=== PATIENT | male | born 1945 | race African-American/Black ===

== ENCOUNTER → 2016-08-30 | Outpatient (CLI) | payer OTHER ==
[2014-04-25 11:09] VITALS: BP 140/80
[~2016-08-30] MED LIST: AMLO10TA2 PO; ASPI81TA50 PO; DOCU100C5 PO; HYDR25TA9 PO; INSU100I17 SQ; INSU100I18 SQ; INSU100I27 SQ; LEUP22.52 IM; LEUP30SY IM; LOSA100T6 PO; LOSA25TA4 PO; LOVA20TA2 PO; METF10002 PO; NYST1000 PO; NYST15CR2 TP; SIMV10TA3 PO; SIMV5TAB PO; SITA100T PO; TAMS0.4C97 PO
--- NOTE | 2016-08-31 09:13 | RAD ---
Exam performed: Single AP standing view bilateral knees and x-ray lumbar spine. History: Bilateral knee and back pain. Date of service: 08/30/16. Comparison: None available Findings: Single AP standing view bilateral knees is obtained. There is moderate to severe narrowing of bilateral medial tibiofemoral joints. Subchondral cysts are seen in the lateral left tibia. There is no acute fracture or dislocation. No soft tissue swelling or foreign body seen. AP, lateral and coned view of the lumbosacral junction is obtained. There is grade 1 anterolisthesis of L4 over L5, this is assuming that the last separate vertebral body is identified. The Vertebral body heights are maintained. There is narrowing of L3/4, L4/5 and L5/S1 intervertebral disc spaces with mild osteophytic spurring. No compression fracture. No prevertebral soft tissue swelling. Nonspecific bowel gas pattern. Impression: 1. 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 Spondylotic changes and multilevel disc degenerative changes involving the lumbar spine. No acute abnormality seen.
== END | disposition home or self-care (01) ==
LOC: RAD 16:27
PROVIDERS: ATTEND Physical Medicine & Rehabilitation
DX: M17.0 Bilateral primary osteoarthritis of knee (principal); M47.896 Other spondylosis, lumbar region
CPT/HCPCS: 72100; 73565

== ENCOUNTER → 2016-12-19 | Outpatient (CLI) | payer OTHER ==
[2014-04-25 11:09] VITALS: BP 140/80
[~2016-12-19] MED LIST changes: +CYCL5TAB PO; +DOCU100C28 PO; -DOCU100C5 PO; +HYDR-2758 PO; +METF-620 PO; -METF10002 PO; +NAPR500T PO; -NYST1000 PO; +NYST100054 PO
--- NOTE | 2016-12-19 13:26 | RAD ---
Indication: Left hip pain. Time of exam 12:50 PM 2 views of the left hip were obtained. The femoral acetabular alignment is normal. The femoral head and neck are intact. No fractures are seen. The joint space is well-maintained. Impression: No acute feature identified.
== END | disposition home or self-care (01) ==
LOC: RAD 12:30
PROVIDERS: ATTEND Internal Medicine
DX: M25.552 Pain in left hip (principal)
CPT/HCPCS: 73502

== ENCOUNTER 2016-12-20 16:01 | Observation (INO) | payer OTHER ==
[~2016-12-20] VITALS: Ht 188 cm; Wt 103.0 kg
[~2016-12-20 16:01] MED LIST changes: -CYCL5TAB PO; -HYDR-2758 PO; -NAPR500T PO
--- NOTE | 2016-12-20 16:40 | PHYS DOC ---
Adult General Chief Complaint Chief Complaint: HIP PAIN HPI HPI Patient is a 71 year old male with history of prostate cancer who presents today with moderate left hip pain radiating into the left lower extremity that has been going on for month. Patient states the pain is worse when he tries to bear weight on the left lower extremity. He states he currently has to use crutches to ambulate because is not able to put any weight on the left lower extremity. Patient denies any trauma. Denies any loss of bowel bladder function. Denies any numbness and tingling to bilateral lower extremities. He states he was seen by the PCP and they did lumbar as well as left hip x-rays which were negative for any acute findings. He states his PCP sent him to the emergency room from MRI PCP is Dr. Yoder Review of Systems Review of Systems Constitutional: Denies fever or chills [] Eyes: Denies change in visual acuity, redness, or eye pain [] HENT: Denies nasal congestion or sore throat [] Respiratory: Denies cough or shortness of breath [] Cardiovascular: No additional information not addressed in HPI [] GI: Denies abdominal pain, nausea, vomiting, bloody stools or diarrhea [] : Denies dysuria or hematuria [] Musculoskeletal: Left hip pain radiating to the left lower extremity Integument: Denies rash or skin lesions [] Neurologic: Denies headache, focal weakness or sensory changes [] Endocrine: Denies polyuria or polydipsia [] Allergies Allergies Allergies Coded Allergies Type Severity Reaction Last Updated Verified No Known Allergies Allergy Mild 04/24/14 Yes Physical Exam Physical Exam Constitutional: Well developed, well nourished, no acute distress, non-toxic appearance. [] HENT: Normocephalic, atraumatic, bilateral external ears normal, oropharynx moist, no oral exudates, nose normal. [] Eyes: PERRLA, EOMI, conjunctiva normal, no discharge. [] Neck: Normal range of motion, no tenderness, supple, no stridor. [] Cardiovascular:Heart rate regular rhythm, no murmur [] Lungs & Thorax: Bilateral breath sounds clear to auscultation [] Abdomen: Bowel sounds normal, soft, no tenderness, no masses, no pulsatile masses. [] Skin: Warm, dry, no erythema, no rash. [] Back: No tenderness, no CVA tenderness. Positive left leg straight raises. Extremities: No tenderness, no cyanosis, no clubbing, ROM intact, no edema. [] Neurologic: Alert and oriented X 3, normal motor function, normal sensory function, no focal deficits noted. [] Psychologic: Affect normal, judgement normal, mood normal. [] Current Patient Data Vital Signs Vital Signs Date Time Temp Pulse Resp B/P (MAP) Pulse Ox O2 Delivery O2 Flow Rate FiO2 12/20/16 16:25 98.3 99 18 153/91 (111) 98 Room Air 98.3 EKG EKG [] Radiology/Procedures Radiology/Procedures [] Course & Med Decision Making Course & Med Decision Making Pertinent Labs and Imaging studies reviewed. (See chart for details) This is a 71-year-old male patient who presents to the ED with left hip pain radiating to the left lower extremity that has been going on for 1 month. Patient states his PCP Dr. Yoder sent him to the ED to have MRI of his lumbar spine. He had x-rays of the left hip done yesterday which were negative. He states he also has had lumbar x-rays which were negative. Patient denies any trauma. Denies any loss of bowel bladder function. 16:[address] Yoder, patient will be admitted. Doctor Beba requested MRI of the lumbar spine and left hip which were ordered to be done as routine a test today or tomorrow. Routing consult was placed for Dr. Waldron per Dr. Yoder's request. Dragon Disclaimer Dragon Disclaimer This electronic medical record was generated, in whole or in part, using a voice recognition dictation system. Departure Departure Impression: Primary Impression: Sciatic leg pain Additional Impression: Left hip pain Disposition: ADMITTED INPATIENT Admitting Physician: Scott Yoder Condition: STABLE Referrals: SCOTT YODER MD (PCP) Problem Qualifiers [employer] Dec 20, 2016 16:40
[2016-12-20] MEDS ORDERED: ACETAMINOPHEN 325 MG TABLET. PO PRN (17:15)
[2016-12-20] MEDS ORDERED: ONDANSETRON PF 4 MG/2 ML VIAL. IV PRN (17:15)
[2016-12-20] MEDS ORDERED: MORPHINE SULFATE 4 MG/ML DISP.SYRIN. IV PRN (17:15)
[2016-12-20] MEDS ORDERED: DEXTROSE 50% 25 GM / 50ML DISP.SYRIN. IV PRN (17:15)
[2016-12-20 17:42] LABS: BASO # 0.1 x10^3/uL (0.0-0.2); BASO % 1 % (0-3); EOS % 1 % (0-3); HEMATOCRIT 44.9 % (39.0-53.0); LYMPH # 1.7 x10^3/uL (1.0-4.8); LYMPH % 18 % (24-48); MEAN CORPUSCULAR HEMOGLOBIN 30 pg (25-35); MEAN CORPUSCULAR HGB CONC 33 g/dL (31-37); MEAN CORPUSCULAR VOLUME 89 fL (79-100); MONO % 9 % (0-9); NEUT % 71 % (31-73); PLATELET COUNT 299 x10^3/uL (140-400); RED BLOOD COUNT 5.07 x10^6/uL (4.30-5.70); RED CELL DISTRIBUTION WIDTH 15.3 % (11.5-14.5); WHITE BLOOD COUNT 9.7 x10^3/uL (4.0-11.0)
[2016-12-20 17:53] LABS: CALCIUM 9.1 mg/dL (8.5-10.1); CREATININE 0.8 mg/dL (0.7-1.3); GFR 115.3; POTASSIUM 3.7 mmol/L (3.5-5.1)
[2016-12-20 18:00] LABS: PROTHROMBIN TIME PATIENT 12.5 SEC (11.7-14.0)
[2016-12-20 18:10] VITALS: BP 155/88
[2016-12-20 19:17] VITALS: BP 155/88
[2016-12-20] MEDS ORDERED: SIMVASTATIN 10 MG TABLET PO SCH (19:30)
--- NOTE | 2016-12-20 20:42 | RAD ---
MRI lumbar spine without contrast History: Left back pain with left hip and leg pain for one month. Comparison: None. Technical factors: Routine multiplanar multisequence MR imaging of the lumbar spine was performed. No contrast was administered. Findings: Bone marrow signal is homogeneous and appropriate for age. No focal marrow edema is seen. Sagittal alignment demonstrates mild grade 1 spondylolisthesis at L4-5 from facet hypertrophy. Vertebral body heights are maintained. The conus appears to terminate at L1-2 interspace. No spinal canal stenosis identified at any level. Seen only on sagittal images, the T11-12 level may demonstrate a small central disc extrusion with inferior migration. L1-2 level demonstrates a mild diffuse disc bulge. There is buckling of the ligamentum flavum. L2-3 level demonstrates a mild diffuse disc bulge. There is buckling of the ligamentum flavum and mild bilateral facet hypertrophy. L3-4 level demonstrates a mild diffuse disc bulge asymmetric to the right. There is buckling of the ligamentum flavum and bilateral facet hypertrophy. Mild bilateral neural foraminal narrowing is seen. L4-5 level demonstrates uncovering of the disc secondary to spondylolisthesis. There is also thought to be a mild diffuse disc bulge. There is buckling of the ligamentum flavum and bilateral facet hypertrophy. Mild bilateral neural foraminal narrowing is seen. L5-S1 level demonstrates small left paracentral disc annular tear. Mild bilateral facet hypertrophy is seen. IMPRESSION: Relatively mild multilevel degeneration. Electronically signed by: Artur Silva MD (12/20/2016 8:39 PM)
--- NOTE | 2016-12-20 21:13 | RAD ---
MRI left hip without contrast No comparison available. History: Left hip pain for one month. Technical factors: Fat-saturated T2-weighted imaging was performed in the axial, coronal and sagittal plane along with axial and coronal T1-weighted images. No contrast was administered. Findings: No bone marrow edema is seen involving the left hip. No fracture is identified. Visualized osseous structures demonstrate normal signal intensity. No left hip joint effusion is seen. No appreciable degenerative change is identified. IMPRESSION: No acute abnormality identified. Electronically signed by: Artur Silva MD (12/20/2016 9:09 PM)
[2016-12-20] MEDS: NICOTINE 21MG PATCH. TD SCH (21:17)
[2016-12-20 23:00] VITALS: BP 128/84
[2016-12-21 03:00] VITALS: BP 121/83
[2016-12-21 07:00] VITALS: BP 121/79
[2016-12-21 07:34] LABS: BASO # 0.1 x10^3/uL (0.0-0.2); BASO % 1 % (0-3); EOS % 2 % (0-3); HEMATOCRIT 43.7 % (39.0-53.0); HEMOGLOBIN 14.5 g/dL (13.0-17.5); LYMPH # 2.2 x10^3/uL (1.0-4.8); LYMPH % 31 % (24-48); MEAN CORPUSCULAR HEMOGLOBIN 30 pg (25-35); MEAN CORPUSCULAR HGB CONC 33 g/dL (31-37); MEAN CORPUSCULAR VOLUME 89 fL (79-100); MONO % 11 % (0-9); NEUT % 55 % (31-73); PLATELET COUNT 263 x10^3/uL (140-400); RED BLOOD COUNT 4.91 x10^6/uL (4.30-5.70); WHITE BLOOD COUNT 7.1 x10^3/uL (4.0-11.0)
[2016-12-21 07:58] LABS: CALCIUM 8.8 mg/dL (8.5-10.1); CREATININE 0.7 mg/dL (0.7-1.3); GFR 134.5; POTASSIUM 3.8 mmol/L (3.5-5.1)
[2016-12-21] MEDS ORDERED: amLODIPine BESYLATE 10 MG TABLET PO SCH (09:00)
[2016-12-21] MEDS ORDERED: DOCUSATE SODIUM 100 MG CAPSULE. PO SCH (09:00)
[2016-12-21] MEDS ORDERED: ASPIRIN ENTERIC COATED 81 MG TABLET.DR. PO SCH (09:00)
[2016-12-21] MEDS: NICOTINE 21MG PATCH. TD SCH (10:01)
[2016-12-21 11:00] VITALS: BP 132/74
[2016-12-21] MEDS ORDERED: HYDROcodone/APAP 5/325MG 1 TAB TABLET PO PRN (11:15)
--- NOTE | 2016-12-21 11:25 | PDOC2 ---
CONSULT Date of Consult Date of Consult DATE: 12/21/16 TIME: 11:02 Reason for Consult Reason for Consult: left lower extremity pain Identification/Chief Complaint Chief Complaint left leg pain Problems: History of Present Illness Reason for Visit: 71M who presented through the ED with complaint of left hip and left lower extremity pain. This began insidiously approximately one month ago without a clear inciting event or injury. Has been progressive since that time. The pain is shooting and radiates from the region of the left hip extending down the lateral left lower extremity to the ankle. It is exacerbated with physical activity. There is some relief with rest. He denies discrete focal weakness or bowel/bladder dysfunction. He denies having any specific treatments since onset beside medications. He reports that the pain is markedly improved today compared to last evening. NS is consulted for evaluation of the lumbar spine. Past Medical History Cardiovascular: HTN GI: Hemorrhoids Renal/: Prostate Ca. Endocrine: Diabetes Family History Family History: No Significant Current Problem List Problem List Problems Medical Problems: (1) Left hip pain Status: Acute (2) Sciatic leg pain Status: Acute Current Medications Current Medications Current Medications Ondansetron HCl (Zofran) 4 mg PRN Q8HRS PRN IV NAUSEA/VOMITING; Start 12/20/16 at 17:15; Stop 12/21/16 at 17:14 Morphine Sulfate 4 mg PRN Q2HR PRN IV PAIN Last administered on 12/20/16 17:43 ; Start 12/20/16 at 17:15; Stop 12/21/16 at 17:14 Acetaminophen (Tylenol) 650 mg PRN Q4HRS PRN PO FEVER; Start 12/20/16 at 17:15 ; Stop 12/21/16 at 17:14 Dextrose (Dextrose 50%-Water Syringe) 12.5 gm PRN Q15MIN PRN IV SEE COMMENTS; Start 12/20/16 at 17:15 Amlodipine Besylate (Norvasc) 10 mg DAILY PO Last administered on 12/21/16 09: 56; Start 12/21/16 at 09:00 Aspirin (Ecotrin) 81 mg DAILY PO Last administered on 12/21/16 09:57; Start 12/21/16 at 09:00 Docusate Sodium (Colace) 100 mg QODAY PO Last administered on 12/21/16 10:00; Start 12/21/16 at 09:00 Metformin HCl (Glucophage) 1,000 mg BIDWMEALS PO Last administered on 12/21/16 09:56; Start 12/20/16 at 19:30 Simvastatin (Zocor) 10 mg HS PO Last administered on 12/20/16 21:17; Start at 19:30 Nicotine (Nicoderm Cq 21mg) 1 patch DAILY TD Last administered on 12/21/16 10: 01; Start 12/20/16 at 19:30 Active Scripts Active Reported Aspir-Low (Aspirin) 81 Mg Tablet.dr 81 Mg PO DAILY Simvastatin 10 Mg Tablet 10 Mg PO HS Januvia (Sitagliptin Phosphate) 100 Mg Tablet 100 Mg PO BID Losartan Potassium 100 Mg Tablet 100 Mg PO DAILY Metformin Hcl 1,000 Mg Tablet 1,000 Mg PO BIDAC BKFT/DINNER Docusate Sodium 100 Mg Capsule 100 Mg PO QODAY Amlodipine Besylate 10 Mg Tablet 10 Mg PO DAILY Allergies Allergies: Coded Allergies: No Known Allergies (Verified Allergy, Mild, 04/24/14) ROS General: No: Chills, Night Sweats, Fatigue, Malaise, Appetite, Other PSYCHOLOGICAL ROS: YES: Suicidal ideation Eyes: No Blurry vision, No Decreased vision, No Double vision, No Dry eyes, No Excessive tearing, No Eye Pain, No Itchy Eyes, No Loss of vision, No Photophobia , No Scotomata, No Uses contacts, No Uses glasses, No Other HEENT: No: Heacaches, Visual Changes, Hearing change, Nasal congestion, Nasal discharge, Oral lesions, Sinus pain, Sore Throat, Epistaxis, Sneezing, Snoring, Tinnitus, Vertigo, Vocal changes, Other ALLERGY AND IMMUNOLOGY: No: Hives, Insect Bite Sensitivity, Itchy/Watery Eyes, Nasal Congestion, Post Nasal Drip, Seasonal Allergies, Other ENDOCRINE: No: Breast Changes, Galactorrhea, Hair Pattern Changes, Hot Flashes , Malaise/lethargy, Mood Swings, Palpitations, Polydipsia/polyuria, Skin Changes , Temperature Intolerance, Unexpected Weight Changes, Other Respiratory: No: Cough, Hemoptysis, Orthopnea, Pleuritic Pain, Shortness of breath, SOB with excertion, Sputum Changes, Stridor, Tachypnea, Wheezing, Other Cardiovascular: No Chest Pain, No Palpitations, No Orthopnea, No Paroxysmal Noc. Dyspnea, No Edema, No Lt Headedness, No Other Gastrointestinal: No Nausea, No Vomiting, No Abdominal Pain, No Diarrhea, No Constipation, No Melena, No Hematochezia, No Other Genitourinary: No Dysuria, No Frequency, No Incontinence, No Hematuria, No Retention, No Discharge, No Urgency, No Pain, No Flank Pain, No Other, No , No , No , No , No , No , No Musculoskeletal: Yes Gait Disturbance (antalgia recently due to leg pain), Yes Joint Pain (left hip pain), No Joint Stiffness, No Joint Swelling, No Muscle Pain, No Muscular Weakness, No Pain In:, No Swelling In:, No Other Neurological: No Bowel/Bladder ControlChng, No Confusion, No Dizziness, No Headaches, No Impaired Coord/balance, No Memory Loss, No Speech Problems, No Visual Changes, No Weakness Skin: No Dry Skin, No Pruritus, No Rash Physical Exam General: Alert, Oriented X3, Cooperative, No acute distress HEENT: Atraumatic, PERRLA, EOMI Lungs: Other (respirations even and nonlabored) Heart: Regular rate Abdomen: Soft, No tenderness Extremities: No cyanosis, No edema Skin: No rashes, No breakdown Neuro: Normal speech, Strength at 5/5 X4 ext, Normal tone, Sensation intact, Cranial nerves 3-12 NL, Other (left patellar and left achilles hyporeflexive relative to the right) MUSCULOSKELETAL: No joint tenderness, No swelling, Other (left hip nontender to palpation) Vitals VITALS Vital Signs Date Time Temp Pulse Resp B/P (MAP) Pulse Ox O2 Delivery O2 Flow Rate FiO2 12/21/16 09:56 79 121/79 12/21/16 07:00 98.6 18 95 Room Air 98.6 Labs Labs Laboratory Tests Test 12/20/16 17:35 12/20/16 18:19 12/20/16 21:09 12/21/16 07:08 White Blood Count 9.7 x10^3/uL (4.0-11.0) 7.1 x10^3/uL (4.0-11.0) Red Blood Count 5.07 x10^6/uL (4.30-5.70) 4.91 x10^6/uL (4.30-5.70) Hemoglobin 15.0 g/dL (13.0-17.5) 14.5 g/dL (13.0-17.5) Hematocrit 44.9 % (39.0-53.0) 43.7 % (39.0-53.0) Mean Corpuscular Volume 89 fL (79-100) 89 fL (79-100) Mean Corpuscular Hemoglobin 30 pg (25-35) 30 pg (25-35) Mean Corpuscular Hemoglobin Concent 33 g/dL (31-37) 33 g/dL (31-37) Red Cell Distribution Width 15.3 % (11.5-14.5) 15.0 % (11.5-14.5) Platelet Count 299 x10^3/uL (140-400) 263 x10^3/uL (140-400) Neutrophils (%) (Auto) 71 % (31-73) 55 % (31-73) Lymphocytes (%) (Auto) 18 % (24-48) 31 % (24-48) Monocytes (%) (Auto) 9 % (0-9) 11 % (0-9) Eosinophils (%) (Auto) 1 % (0-3) 2 % (0-3) Basophils (%) (Auto) 1 % (0-3) 1 % (0-3) Neutrophils # (Auto) 6.9 x10^3uL (1.8-7.7) 3.9 x10^3uL (1.8-7.7) Lymphocytes # (Auto) 1.7 x10^3/uL (1.0-4.8) 2.2 x10^3/uL (1.0-4.8) Monocytes # (Auto) 0.9 x10^3/uL (0.0-1.1) 0.7 x10^3/uL (0.0-1.1) Eosinophils # (Auto) 0.1 x10^3/uL (0.0-0.7) 0.2 x10^3/uL (0.0-0.7) Basophils # (Auto) 0.1 x10^3/uL (0.0-0.2) 0.1 x10^3/uL (0.0-0.2) Prothrombin Time 12.5 SEC (11.7-14.0) Prothromb Time International Ratio 1.0 (0.8-1.1) Activated Partial Thromboplast Time 29 SEC (24-38) Sodium Level 143 mmol/L (136-145) 143 mmol/L (136-145) Potassium Level 3.7 mmol/L (3.5-5.1) 3.8 mmol/L (3.5-5.1) Chloride Level 108 mmol/L (98-107) 108 mmol/L (98-107) Carbon Dioxide Level 26 mmol/L (21-32) 26 mmol/L (21-32) Anion Gap 9 (6-14) 9 (6-14) Blood Urea Nitrogen 12 mg/dL (8-26) 11 mg/dL (8-26) Creatinine 0.8 mg/dL (0.7-1.3) 0.7 mg/dL (0.7-1.3) Estimated GFR (Cockcroft-Gault) 115.3 134.5 Glucose Level 101 mg/dL (70-99) 101 mg/dL (70-99) Calcium Level 9.1 mg/dL (8.5-10.1) 8.8 mg/dL (8.5-10.1) Glucose (Fingerstick) 113 mg/dL (70-99) 139 mg/dL (70-99) Test 12/21/16 07:24 Glucose (Fingerstick) 96 mg/dL (70-99) Laboratory Tests Test 12/20/16 17:35 12/20/16 18:19 12/20/16 21:09 12/21/16 07:08 White Blood Count 9.7 x10^3/uL (4.0-11.0) 7.1 x10^3/uL (4.0-11.0) Red Blood Count 5.07 x10^6/uL (4.30-5.70) 4.91 x10^6/uL (4.30-5.70) Hemoglobin 15.0 g/dL (13.0-17.5) 14.5 g/dL (13.0-17.5) Hematocrit 44.9 % (39.0-53.0) 43.7 % (39.0-53.0) Mean Corpuscular Volume 89 fL (79-100) 89 fL (79-100) Mean Corpuscular Hemoglobin 30 pg (25-35) 30 pg (25-35) Mean Corpuscular Hemoglobin Concent 33 g/dL (31-37) 33 g/dL (31-37) Red Cell Distribution Width 15.3 % (11.5-14.5) 15.0 % (11.5-14.5) Platelet Count 299 x10^3/uL (140-400) 263 x10^3/uL (140-400) Neutrophils (%) (Auto) 71 % (31-73) 55 % (31-73) Lymphocytes (%) (Auto) 18 % (24-48) 31 % (24-48) Monocytes (%) (Auto) 9 % (0-9) 11 % (0-9) Eosinophils (%) (Auto) 1 % (0-3) 2 % (0-3) Basophils (%) (Auto) 1 % (0-3) 1 % (0-3) Neutrophils # (Auto) 6.9 x10^3uL (1.8-7.7) 3.9 x10^3uL (1.8-7.7) Lymphocytes # (Auto) 1.7 x10^3/uL (1.0-4.8) 2.2 x10^3/uL (1.0-4.8) Monocytes # (Auto) 0.9 x10^3/uL (0.0-1.1) 0.7 x10^3/uL (0.0-1.1) Eosinophils # (Auto) 0.1 x10^3/uL (0.0-0.7) 0.2 x10^3/uL (0.0-0.7) Basophils # (Auto) 0.1 x10^3/uL (0.0-0.2) 0.1 x10^3/uL (0.0-0.2) Prothrombin Time 12.5 SEC (11.7-14.0) Prothromb Time International Ratio 1.0 (0.8-1.1) Activated Partial Thromboplast Time 29 SEC (24-38) Sodium Level 143 mmol/L (136-145) 143 mmol/L (136-145) Potassium Level 3.7 mmol/L (3.5-5.1) 3.8 mmol/L (3.5-5.1) Chloride Level 108 mmol/L (98-107) 108 mmol/L (98-107) Carbon Dioxide Level 26 mmol/L (21-32) 26 mmol/L (21-32) Anion Gap 9 (6-14) 9 (6-14) Blood Urea Nitrogen 12 mg/dL (8-26) 11 mg/dL (8-26) Creatinine 0.8 mg/dL (0.7-1.3) 0.7 mg/dL (0.7-1.3) Estimated GFR (Cockcroft-Gault) 115.3 134.5 Glucose Level 101 mg/dL (70-99) 101 mg/dL (70-99) Calcium Level 9.1 mg/dL (8.5-10.1) 8.8 mg/dL (8.5-10.1) Glucose (Fingerstick) 113 mg/dL (70-99) 139 mg/dL (70-99) Test 12/21/16 07:24 Glucose (Fingerstick) 96 mg/dL (70-99) Images Images 1) MRI left hip without contrast No comparison available. History: Left hip pain for one month. Technical factors: Fat-saturated T2-weighted imaging was performed in the axial, coronal and sagittal plane along with axial and coronal T1-weighted images. No contrast was administered. Findings: No bone marrow edema is seen involving the left hip. No fracture is identified. Visualized osseous structures demonstrate normal signal intensity. No left hip joint effusion is seen. No appreciable degenerative change is identified. IMPRESSION: No acute abnormality identified. 2) There is an MRI of the lumbar spine from 12/20/16. Diffuse degenerative changes are noted. At L3-4, there is mild disk bulge more prominent on the right without high grade stenosis. There is grade 1 anterolisthesis of L4 on L5. There is mild/moderate lateral recess stenosis at this location and mild bilateral foraminal narrowing. No high grade stenoses or acute findings are otherwise identified. Assessment/Plan Assessment/Plan 71M with greatly improved left lower extremity pain with lumbar spondylosis, lumbar spondylolisthesis, and mild stenosis. He remains neurologically intact and has not had specific treatments other than medication at this point. Lumbar surgical intervention not recommended at the present time. Will obtain opinion from physiatry. He may benefit from physical therapy and evaluation/treatment by pain management. If he continues to do well, these things could be completed on an outpatient basis. JOSHUA LUCAS MD Dec 21, 2016 11:25
[2016-12-21] MEDS ORDERED: HYDR-2758 PO (11:59)
[2016-12-21] MEDS ORDERED: CYCL5TAB PO (11:59)
[2016-12-21] MEDS ORDERED: NAPR500T PO (11:59)
--- NOTE | 2016-12-21 12:06 | PDOC1 ---
HISTORY AND PHYSICAL Chief Complaint Chief Complaint This is 71 year old male has been admitted with a chief complaint of lt hip and thigh pain for 4 weeks ,getting worse ,not able to walk, has to use crutches lately to walk in the room. . Problems: Past Medical History Cardiovascular: HTN GI: Hemorrhoids Renal/: Prostate Ca. Endocrine: Diabetes Past Family History Family History: No Significant Past Social History PSH no smoking or alcohol Review of Symptoms Review of Symptoms General ROS: positive for lt thigh and hip pain. Psychological ROS: negative Ophthalmic ROS: negative ENT ROS: negative Allergy and Immunology ROS: negative Hematology and Lymphatic: negative Endocrine ROS: negative Respiratory ROS: no cold, cough, dyspnea. Cardiovascular ROS: no chest pain or dyspnea on exertion Gastrointestinal ROS: no abdominal pain, change in bowel habits, or black or bloody stools Genito-Urinary ROS: no dysuria, trouble voiding, or hematuria Musculoskeletal ROS: pain lt Neurological ROS: negative Dermatological ROS: no rash Medications Current Medications Acetaminophen (Tylenol) 650 mg PRN Q4HRS PRN PO FEVER; Start 12/20/16 at 17:15 ; Stop 12/21/16 at 17:14 Acetaminophen/ Hydrocodone Bitart (Lortab 5/325) 1 tab PRN Q12HRS PRN PO PAIN; Start 12/21/16 at 11:15 Amlodipine Besylate (Norvasc) 10 mg DAILY PO Last administered on 12/21/16 09: 56; Start 12/21/16 at 09:00 Aspirin (Ecotrin) 81 mg DAILY PO Last administered on 12/21/16 09:57; Start 12/21/16 at 09:00 Dextrose (Dextrose 50%-Water Syringe) 12.5 gm PRN Q15MIN PRN IV SEE COMMENTS; Start 12/20/16 at 17:15 Docusate Sodium (Colace) 100 mg QODAY PO Last administered on 12/21/16 10:00; Start 12/21/16 at 09:00 Metformin HCl (Glucophage) 1,000 mg BIDWMEALS PO Last administered on 12/21/16 09:56; Start 12/20/16 at 19:30 Morphine Sulfate 4 mg PRN Q2HR PRN IV PAIN Last administered on 12/20/16 17:43 ; Start 12/20/16 at 17:15; Stop 12/21/16 at 17:14 Naproxen (Naprosyn) 500 mg BIDWMEALS PO ; Start 12/21/16 at 17:00 Nicotine (Nicoderm Cq 21mg) 1 patch DAILY TD Last administered on 12/21/16 10: 01; Start 12/20/16 at 19:30 Ondansetron HCl (Zofran) 4 mg PRN Q8HRS PRN IV NAUSEA/VOMITING; Start 12/20/16 at 17:15; Stop 12/21/16 at 17:14 Simvastatin (Zocor) 10 mg HS PO Last administered on 12/20/16 21:17; Start at 19:30 Allergy Allergies Coded Allergies Type Severity Reaction Last Updated Verified No Known Allergies Allergy Mild 04/24/14 Yes Physical Exam Physical Exam General appearance - alert,well appearing, and in moderate distress and oriented to person, place, and time Mental Status - alert, oriented to person, place, and time, affect appropriate to mood Head - normal Chest - clear to auscultation, no wheezes, rales or rhonchi, symmetric air entry Heart - S1 and S2 normal Abdomen - soft, nontender, nondistended, no masses or organomegaly Neurological - alert and oriented Musculoskeletal - pain left hip and thigh , normal hip range, SLr pain ful Extremities - no pedal edema Skin - warm and dry Labs Laboratory Tests Test 12/20/16 17:35 12/20/16 18:19 12/20/16 21:09 12/21/16 07:08 White Blood Count 9.7 x10^3/uL (4.0-11.0) 7.1 x10^3/uL (4.0-11.0) Red Blood Count 5.07 x10^6/uL (4.30-5.70) 4.91 x10^6/uL (4.30-5.70) Hemoglobin 15.0 g/dL (13.0-17.5) 14.5 g/dL (13.0-17.5) Hematocrit 44.9 % (39.0-53.0) 43.7 % (39.0-53.0) Mean Corpuscular Volume 89 fL (79-100) 89 fL (79-100) Mean Corpuscular Hemoglobin 30 pg (25-35) 30 pg (25-35) Mean Corpuscular Hemoglobin Concent 33 g/dL (31-37) 33 g/dL (31-37) Red Cell Distribution Width 15.3 % (11.5-14.5) 15.0 % (11.5-14.5) Platelet Count 299 x10^3/uL (140-400) 263 x10^3/uL (140-400) Neutrophils (%) (Auto) 71 % (31-73) 55 % (31-73) Lymphocytes (%) (Auto) 18 % (24-48) 31 % (24-48) Monocytes (%) (Auto) 9 % (0-9) 11 % (0-9) Eosinophils (%) (Auto) 1 % (0-3) 2 % (0-3) Basophils (%) (Auto) 1 % (0-3) 1 % (0-3) Neutrophils # (Auto) 6.9 x10^3uL (1.8-7.7) 3.9 x10^3uL (1.8-7.7) Lymphocytes # (Auto) 1.7 x10^3/uL (1.0-4.8) 2.2 x10^3/uL (1.0-4.8) Monocytes # (Auto) 0.9 x10^3/uL (0.0-1.1) 0.7 x10^3/uL (0.0-1.1) Eosinophils # (Auto) 0.1 x10^3/uL (0.0-0.7) 0.2 x10^3/uL (0.0-0.7) Basophils # (Auto) 0.1 x10^3/uL (0.0-0.2) 0.1 x10^3/uL (0.0-0.2) Prothrombin Time 12.5 SEC (11.7-14.0) Prothromb Time International Ratio 1.0 (0.8-1.1) Activated Partial Thromboplast Time 29 SEC (24-38) Sodium Level 143 mmol/L (136-145) 143 mmol/L (136-145) Potassium Level 3.7 mmol/L (3.5-5.1) 3.8 mmol/L (3.5-5.1) Chloride Level 108 mmol/L (98-107) 108 mmol/L (98-107) Carbon Dioxide Level 26 mmol/L (21-32) 26 mmol/L (21-32) Anion Gap 9 (6-14) 9 (6-14) Blood Urea Nitrogen 12 mg/dL (8-26) 11 mg/dL (8-26) Creatinine 0.8 mg/dL (0.7-1.3) 0.7 mg/dL (0.7-1.3) Estimated GFR (Cockcroft-Gault) 115.3 134.5 Glucose Level 101 mg/dL (70-99) 101 mg/dL (70-99) Calcium Level 9.1 mg/dL (8.5-10.1) 8.8 mg/dL (8.5-10.1) Glucose (Fingerstick) 113 mg/dL (70-99) 139 mg/dL (70-99) Test 12/21/16 07:24 12/21/16 11:18 Glucose (Fingerstick) 96 mg/dL (70-99) 115 mg/dL (70-99) Laboratory Tests Test 12/20/16 17:35 12/20/16 18:19 12/20/16 21:09 12/21/16 07:08 White Blood Count 9.7 x10^3/uL (4.0-11.0) 7.1 x10^3/uL (4.0-11.0) Red Blood Count 5.07 x10^6/uL (4.30-5.70) 4.91 x10^6/uL (4.30-5.70) Hemoglobin 15.0 g/dL (13.0-17.5) 14.5 g/dL (13.0-17.5) Hematocrit 44.9 % (39.0-53.0) 43.7 % (39.0-53.0) Mean Corpuscular Volume 89 fL (79-100) 89 fL (79-100) Mean Corpuscular Hemoglobin 30 pg (25-35) 30 pg (25-35) Mean Corpuscular Hemoglobin Concent 33 g/dL (31-37) 33 g/dL (31-37) Red Cell Distribution Width 15.3 % (11.5-14.5) 15.0 % (11.5-14.5) Platelet Count 299 x10^3/uL (140-400) 263 x10^3/uL (140-400) Neutrophils (%) (Auto) 71 % (31-73) 55 % (31-73) Lymphocytes (%) (Auto) 18 % (24-48) 31 % (24-48) Monocytes (%) (Auto) 9 % (0-9) 11 % (0-9) Eosinophils (%) (Auto) 1 % (0-3) 2 % (0-3) Basophils (%) (Auto) 1 % (0-3) 1 % (0-3) Neutrophils # (Auto) 6.9 x10^3uL (1.8-7.7) 3.9 x10^3uL (1.8-7.7) Lymphocytes # (Auto) 1.7 x10^3/uL (1.0-4.8) 2.2 x10^3/uL (1.0-4.8) Monocytes # (Auto) 0.9 x10^3/uL (0.0-1.1) 0.7 x10^3/uL (0.0-1.1) Eosinophils # (Auto) 0.1 x10^3/uL (0.0-0.7) 0.2 x10^3/uL (0.0-0.7) Basophils # (Auto) 0.1 x10^3/uL (0.0-0.2) 0.1 x10^3/uL (0.0-0.2) Prothrombin Time 12.5 SEC (11.7-14.0) Prothromb Time International Ratio 1.0 (0.8-1.1) Activated Partial Thromboplast Time 29 SEC (24-38) Sodium Level 143 mmol/L (136-145) 143 mmol/L (136-145) Potassium Level 3.7 mmol/L (3.5-5.1) 3.8 mmol/L (3.5-5.1) Chloride Level 108 mmol/L (98-107) 108 mmol/L (98-107) Carbon Dioxide Level 26 mmol/L (21-32) 26 mmol/L (21-32) Anion Gap 9 (6-14) 9 (6-14) Blood Urea Nitrogen 12 mg/dL (8-26) 11 mg/dL (8-26) Creatinine 0.8 mg/dL (0.7-1.3) 0.7 mg/dL (0.7-1.3) Estimated GFR (Cockcroft-Gault) 115.3 134.5 Glucose Level 101 mg/dL (70-99) 101 mg/dL (70-99) Calcium Level 9.1 mg/dL (8.5-10.1) 8.8 mg/dL (8.5-10.1) Glucose (Fingerstick) 113 mg/dL (70-99) 139 mg/dL (70-99) Test 12/21/16 07:24 12/21/16 11:18 Glucose (Fingerstick) 96 mg/dL (70-99) 115 mg/dL (70-99) Vitals Vital Signs Date Time Temp Pulse Resp B/P (MAP) Pulse Ox O2 Delivery O2 Flow Rate FiO2 12/21/16 11:00 98.5 91 18 132/74 (93) 96 Room Air 98.5 VTE Prophylaxis VTE Prophylaxis Devices: No VTE Pharmacological Prophylaxi: Yes Assessment Assessment IMP: lt leg sciatica djd lumbar spine DM type 2 htn hyperlipidemia Plan Plan mri left hip mri lumbar spine neuro surgical consult. narcotic pain meds NSAIDS muscle relaxents. home today crutches pt out pt rehab consult. For more details regarding further plans, please refer to the orders. SCOTT SCHWARZ MD Dec 21, 2016 12:06
[2016-12-21] MEDS ORDERED: NAPROXEN 500 MG TABLET PO SCH (17:00)
--- NOTE | 2016-12-22 09:44 | PDOC3 ---
IM DISCHARGE SUMMARY Date of Admission Date of Admission Date of Admission: Dec 20, 2016 at 16:51 Date of Discharge Date of Discharge December Primary Diagnosis Primary Diagnosis Problems Medical Problems: (1) Left hip pain Status: Acute (2) Sciatic leg pain Status: Acute Problems: Consults Consults Neuro surgery dr Brewer Procedures Procedures MRI left hip MRI lumbar spine Labs Labs Laboratory Tests Test 12/21/16 11:18 Glucose (Fingerstick) 115 mg/dL (70-99) Brief hospital course Brief hospital course This is 71 year old male who presented with left hip pain and thigh pain going for 4 weeks ,getting worse has to use crutches to move around. he had MRI rt hip neg, 2) There is an MRI of the lumbar spine from 12/20/16. Diffuse degenerative changes are noted. At L3-4, there is mild disk bulge more prominent on the right without high grade stenosis. There is grade 1 anterolisthesis of L4 on L5. There is mild/moderate lateral recess stenosis at this location and mild bilateral foraminal narrowing. No high grade stenoses or acute findings are otherwise identified.Seen by neuro surgery, recommended conservative treatment.steroids oral and muscle relaxants.NSAIDS and narcotic pain meds. 71M with greatly improved left lower extremity pain with lumbar spondylosis, lumbar spondylolisthesis, and mild stenosis. He remains neurologically intact and has not had specific treatments other than medication at this point. Lumbar surgical intervention not recommended at the present time. Will obtain opinion from physiatry. He may benefit from physical therapy and evaluation/treatment by pain management. If he continues to do well, these things could be completed on an outpatient basis. For more details regarding the past history, family history, social history, surgical history and other details, please refer to History and Physical. Medications Current Medications Acetaminophen/ Hydrocodone Bitart (Lortab 5/325) 1 tab PRN Q12HRS PRN PO PAIN Last administered on 12/21/16 12:00; Start 12/21/16 at 11:15; Stop 12/21/16 at 21: 43; Status DC Naproxen (Naprosyn) 500 mg BIDWMEALS PO Last administered on 12/21/16 11:58; Start 12/21/16 at 17:00; Stop 12/21/16 at 21:43; Status DC Allergy Allergies Coded Allergies Type Severity Reaction Last Updated Verified No Known Allergies Allergy Mild 04/24/14 Yes Follow up in 5 days. DISPOSITION: Home Comments Discharge Management - 25 minutes. For other details please refer to discharge instructions SCOTT SCHWARZ MD Dec 22, 2016 09:44
== END 2016-12-21 15:45 | disposition home or self-care (01) ==
LOC: ER 16:01 → 4 NORTH 16:51
PROVIDERS: ADMIT Internal Medicine; ATTEND Internal Medicine
DX: M47.896 Other spondylosis, lumbar region (principal); M54.32 Sciatica, left side; I10 Essential (primary) hypertension; E11.9 Type 2 diabetes mellitus without complications; E78.5 Hyperlipidemia, unspecified
CPT/HCPCS: 36415; 72148; 73718; 80048; 82962; 85027; 85610; 85730; 96374; 99285; 99406; G0378; J2270; G0379

== ENCOUNTER → 2018-01-14 | Outpatient (CLI) | payer OTHER | END | disposition home or self-care (01) | LOC: RAD 12:14 | DX: M17.0 Bilateral primary osteoarthritis of knee (principal); I10 Essential (primary) hypertension; E11.9 Type 2 diabetes mellitus without complications; Z87.891 Personal history of nicotine dependence; Z92.3 Personal history of irradiation | CPT/HCPCS: 73565 ==

== ENCOUNTER → 2019-03-16 | Outpatient (CLI) | payer OTHER ==
[~2019-03-16] MED LIST changes: -AMLO10TA2 PO; +AMLO10TA8 PO; +CYCL5TAB PO; +HYDR-2145 PO; +HYDR-2761 PO; -HYDR25TA9 PO; +LOSA100T14 PO; -LOSA100T6 PO; -LOSA25TA4 PO; +LOSA25TA54 PO; -METF-620 PO; +METF10007 PO; +NAPR-683 PO; +REGADENOSON 0.4 MG/5 ML DISP.SYRIN. IV ONE
--- NOTE | 2019-03-16 13:41 | RAD ---
MR#: [id number] Date of Study: 03/16/2019 Ordering Physician: MELISSA LEIGH, Referring Physician: RYDER REDMOND Tech: FERNANDA Price APPROVED REPORT Test Type: Exercise Stress Nurse/Tech: Rosio Gonzalez R.N. Test Indications: abnormal EKG Cardiac History: htn, smoker,dm Medications: See Electronic Medical Record Medical History: See Electronic Medical Record Resting ECG: SR w/slight ST elevation in lead V3 Resting Heart Rate: 66 bpm Resting Blood Pressure: 140/78mmHg Pretest Chest Pain: No chest pain Nurse/Tech Notes S1S2, lungs CTA Consent: The procedure was explained to the patient in lay terms. Informed consent was witnessed. Harvey eout was entered into [employer]. History and Stress Test performed by FERNANDA Price Stress Symptoms SOB POST EXERCISE Reason for Termination: Reached target heart rate Target HR: Yes Max HR: 133 bpm 107% of Maximum Predicted HR: 124 bpm Exercise duration: 6:30 min:sec, 2 Stage Exercise capacity: 7METs Max Blood Pressure: 181/86mmHg Blood Pressure response to exercise: Abnormal blood pressure response during stress. Heart Rate response to exercise: wnl Chest Pain: No. Arrhythmia: Yes. occaisional pvc ST Change: Yes. slight ST depression in leads V5 & V6 <1mm INTERPRETATION Stress EKG Conclusion: Baseline EKG showed sinus rhythm. Non-diagnostic changes at peak stress. No arrhythmias. Imaging Protocol IMAGE PROTOCOL: Rest Tc-99m/stress Tc-99m 1 day Rest: Stress: Viability: Radiopharm.Tc99m [id number] Sestamibi Post-Injection Exercise: 1 minute Rest Admin Site:IV - Left AntecubitalAdministrator:FERNANDA Price Stress Admin Site: IV - Left AntecubitalAdministrator: CHIQUI Kinney, ARRT (R)(N) STRESS DATA End Diast. Vol.127.0mlLVEDV index BSA56.0ml End Syst. Vol.49.0mlLVESV index BSA21.0ml Myocardial Dmtt937.0gEject. Nnjtrtvi53.0% Stress Scores Regional WT2.00Summed WT18.00 Regional WM0.00Summed WM3.00 Study quality was good. Left Ventricular size was Normal at Rest and Stress. Lung uptake was . Left Ventricular ejection fraction is 61%. The rest and stress images show normal perfusion, normal contraction and thickening. LV Perf. Quant 17 Seg. SSS0.00 17 Seg. SRS1.00 17 Seg. SDS0.00 Stress Defect Extent (% LAD)0.00Rest Defect Extent (% LAD)0.00Rev. Defect Extent (% LAD)0.00 Stress Defect Extent (% LCX) 0.00Rest Defect Extent (% LCX)5.00Rev. Defect Extent (% LCX)0.00 Stress Defect Extent (% RCA)0.00Rest Defect Extent (% RCA)0.00Rev. Defect Extent (% RCA)0.00 Stress Defect Extent (% THOM)0.00Rest Defect Extent (% THOM)0.90Rev. Defect Extent (% THOM)0.00 Conclusion 1. Treadmill exercise cardioisotope stress test did not show any evidence of ischemia or infarct. 2. Normal left ventricular systolic function with ejection fraction calculated at 61%. 3. Low risk for cardiac events. Signed by : Tim Ramirez Electronically Approved : 03/16/2019 13:41:24
== END | disposition home or self-care (01) ==
LOC: NM 08:59
PROVIDERS: ATTEND Internal Medicine Cardiovascular Disease
DX: I49.3 Ventricular premature depolarization (principal); I10 Essential (primary) hypertension; E11.9 Type 2 diabetes mellitus without complications; F17.200 Nicotine dependence, unspecified, uncomplicated
CPT/HCPCS: 78452; 93017; A9500